=== PATIENT | male | born 1950 | race Caucasian/White ===

== ENCOUNTER 2017-12-30 10:39 | Emergency (ER) | payer MEDICARE, OTHER ==
[2017-12-30] MEDS: diazePAM 5 MG TAB PO (11:42)
== END 2017-12-30 11:50 | disposition home or self-care (01) ==
LOC: M ED 10:39
DX: S73.121A Ischiocapsular ligament sprain of right hip, initial encounter (principal); X50.9XXA Other and unspecified overexertion or strenuous movements or postures, initial encounter; Y92.89 Other specified places as the place of occurrence of the external cause; Y99.0 Civilian activity done for income or pay; I10 Essential (primary) hypertension; G47.33 Obstructive sleep apnea (adult) (pediatric); K21.9 Gastro-esophageal reflux disease without esophagitis
CPT/HCPCS: 99284